=== PATIENT | male | born 1935 | race Caucasian/White ===

== ENCOUNTER 2018-07-24 11:16 | Inpatient (IN) | payer MEDICARE, OTHER ==
[~2018-07-24] VITALS: Ht 167.6 cm; Wt 63.2 kg
[~2018-07-24 11:16] MED LIST: ACET325T14 PO; AMAN100C7 PO; ASPI-496 PO; ASPI-515 PO; ASPI325T17 PO; CLOP75TA PO; METO25TA35 PO; OLME40TA12 PO; OMEP-110 PO; PRED1TAB PO; RASA1TAB2 PO; SIMV20TA3 PO
--- NOTE | 2018-07-24 12:02 | NUR ---
Break RN: Pt to ER after >1mo. SOB, orthopnea & increasing BLE edema. Went to [facility] office 4 days ago, had CXR & told to go to ER at that time for further eval. of pleural effusion. Pt decided to wait until today for f/u care. Arrives by POV, speaks full sentences, tachypneic at 35, sats >94% RA. BLE 3+ edema with LLE erythma. EKG done, cardiac, NIBP & SPO2 monitors IP. 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 @ [facility], has been seen & eval by Dr. Mckenzie & aware of POC. Placed on 2liters via NC. Sats 100% on 2l.
[2018-07-24] MEDS ORDERED: FUROSEMIDE 40 MG/4 ML IV ONE (12:30)
[2018-07-24 12:46] LABS: BASOPHILS # (AUTO) 0.03 x10^3/uL (0-0.1); BASOPHILS % (AUTO) 0 % (0-1); EOSINOPHILS # (AUTO) 0.15 x10^3/uL (0-0.4); EOSINOPHILS % (AUTO) 2 % (1-7); LYMPHOCYTES # (AUTO) 0.73 x10^3/uL (1-3.4); LYMPHOCYTES % (AUTO) 12 % (22-44); MD NO; MEAN CORPUSCULAR HEMOGLOBIN 31.5 pg (27.5-34.5); MEAN CORPUSCULAR VOLUME 95.5 fL (81-97); MEAN PLATELET VOLUME 8.8 fL (7.4-10.4); MONOCYTES # (AUTO) 0.47 x10^3/uL (0.2-0.8); MONOCYTES % (AUTO) 8 % (2-9); NEUTROPHILS # (AUTO) 4.85 x10^3/uL (1.8-6.8); NEUTROPHILS % (AUTO) 78 % (42-75); PLATELET COUNT 199 x10^3/uL (130-400); RED CELL DISTRIBUTION WIDTH 16.8 % (9.4-14.8)
[2018-07-24 12:48] LABS: CHLORIDE 111 mmol/L (98-107)
[2018-07-24 12:53] LABS: ANION GAP 8 mmol/L (5-15); CALCIUM 9.6 mg/dL (8.5-10.1); CREATININE 1.89 mg/dL (0.7-1.3); INTERNATIONAL NORMALIZED RATIO 1.24 (0.93-1.1); PROTHROMBIN TIME 12.9 Seconds (9.6-11.5)
[2018-07-24] MEDS ORDERED: FUROSEMIDE 40 MG/4 ML ONE (12:56)
[2018-07-24 12:58] LABS: TROPONIN I 0.046 ng/mL (0.000-0.045)
[2018-07-24] MEDS ORDERED: CEFTRIAXONE PMX 1GM/50ML 50 ML IV ONE (13:00)
[2018-07-24] MEDS ORDERED: AZITHROMYCIN 500 MG in SODIUM CHLORIDE 0.9% 250 ML IV ONE (13:00)
--- NOTE | 2018-07-24 13:15 | NUR ---
PT TO RAD VIA [facility] FOR THARACENTESIS. VSS. NO ACUTE S/S OF DISTRESS
[2018-07-24] MEDS ORDERED: LIDOCAINE-MPF 1%, 5ML ONE (13:20)
[2018-07-24 14:29] VITALS: BP 145/97
[2018-07-24] MEDS: CEFTRIAXONE PMX 1GM/50ML 50 ML IV SCH (14:46)
[2018-07-24] MEDS ORDERED: GUAIFENESIN 100 MG/5 ML, 5ML UDC PO PRN (15:30)
[2018-07-24] MEDS: HEPARIN 5,000 UNITS/ML, 1ML SQ SCH (17:42)
[2018-07-24 20:10] VITALS: BP 139/92
[2018-07-24] MEDS ORDERED: LOSARTAN 50MG TABLET PO SCH (21:00)
[2018-07-24] MEDS: RASAGILINE 1 MG PO SCH (21:00)
[2018-07-24] MEDS ORDERED: NUPLAZID PO ONE (22:00)
[2018-07-25 00:15] VITALS: BP 115/73
[2018-07-25] MEDS: HEPARIN 5,000 UNITS/ML, 1ML SQ SCH ×3 (01:12→18:11)
[2018-07-25 05:22] LABS: BASOPHILS # (AUTO) 0.04 x10^3/uL (0-0.1); BASOPHILS % (AUTO) 1 % (0-1); EOSINOPHILS # (AUTO) 0.17 x10^3/uL (0-0.4); EOSINOPHILS % (AUTO) 3 % (1-7); LYMPHOCYTES # (AUTO) 0.96 x10^3/uL (1-3.4); LYMPHOCYTES % (AUTO) 16 % (22-44); MD NO; MEAN CORPUSCULAR HEMOGLOBIN 31.8 pg (27.5-34.5); MEAN CORPUSCULAR HGB CONC 33.6 g/dL (33.2-36.2); MEAN CORPUSCULAR VOLUME 94.7 fL (81-97); MEAN PLATELET VOLUME 8.4 fL (7.4-10.4); MONOCYTES # (AUTO) 0.73 x10^3/uL (0.2-0.8); MONOCYTES % (AUTO) 12 % (2-9); NEUTROPHILS # (AUTO) 4.26 x10^3/uL (1.8-6.8); NEUTROPHILS % (AUTO) 69 % (42-75); PLATELET COUNT 181 x10^3/uL (130-400); RED CELL DISTRIBUTION WIDTH 16.1 % (9.4-14.8)
[2018-07-25 05:40] LABS: CHLORIDE 108 mmol/L (98-107)
[2018-07-25 05:50] LABS: ALANINE AMINOTRANSFERASE 24 U/L (12-78); ALBUMIN 3.1 g/dL (3.4-5.0); ALKALINE PHOSPHATASE 193 U/L (45-117); ANION GAP 10 mmol/L (5-15); BILIRUBIN,TOTAL 1.6 mg/dL (0.2-1.0); CALCIUM 9.4 mg/dL (8.5-10.1); TOTAL PROTEIN 6.2 g/dL (6.4-8.2)
[2018-07-25 07:20] VITALS: BP 129/86
[2018-07-25] MEDS ORDERED: NUPLAZID 17 MG PO SCH (09:00)
[2018-07-25] MEDS ORDERED: ASPIRIN 81 MG TABLET EC PO SCH (09:00)
[2018-07-25] MEDS: AMANTADINE 100 MG CAPSULE PO SCH (09:50)
[2018-07-25] MEDS: OMEPRAZOLE 20 MG CAPSULE.DR PO SCH (09:50)
[2018-07-25] MEDS: AZITHROMYCIN 250 MG TABLET PO SCH (09:50)
[2018-07-25] MEDS: CLOPIDOGREL 75 MG TABLET PO SCH (09:51)
[2018-07-25] MEDS ORDERED: NUPLAZID 34 MG PO SCH (11:30)
[2018-07-25 12:18] VITALS: BP 115/66
[2018-07-25] MEDS: CEFTRIAXONE PMX 1GM/50ML 50 ML IV SCH (14:33)
[2018-07-25] MEDS: RASAGILINE 1 MG PO SCH (19:55)
[2018-07-25 20:25] VITALS: BP 122/83
[2018-07-26 00:44] VITALS: BP 133/88
[2018-07-26] MEDS: HEPARIN 5,000 UNITS/ML, 1ML SQ SCH ×3 (02:05→21:04)
[2018-07-26 06:50] VITALS: BP 133/84
[2018-07-26 07:16] LABS: BASOPHILS # (AUTO) 0.04 x10^3/uL (0-0.1); BASOPHILS % (AUTO) 1 % (0-1); EOSINOPHILS # (AUTO) 0.17 x10^3/uL (0-0.4); EOSINOPHILS % (AUTO) 2 % (1-7); LYMPHOCYTES # (AUTO) 1.16 x10^3/uL (1-3.4); LYMPHOCYTES % (AUTO) 16 % (22-44); MD NO; MEAN CORPUSCULAR HEMOGLOBIN 31.1 pg (27.5-34.5); MEAN CORPUSCULAR HGB CONC 32.7 g/dL (33.2-36.2); MEAN CORPUSCULAR VOLUME 95.2 fL (81-97); MEAN PLATELET VOLUME 8.5 fL (7.4-10.4); MONOCYTES # (AUTO) 1.09 x10^3/uL (0.2-0.8); MONOCYTES % (AUTO) 15 % (2-9); NEUTROPHILS # (AUTO) 4.91 x10^3/uL (1.8-6.8); NEUTROPHILS % (AUTO) 67 % (42-75); PLATELET COUNT 185 x10^3/uL (130-400); RED BLOOD COUNT 4.85 x10^6/uL (4.38-5.82); RED CELL DISTRIBUTION WIDTH 16.8 % (9.4-14.8)
[2018-07-26 07:20] LABS: ALANINE AMINOTRANSFERASE 23 U/L (12-78); ALBUMIN 3.3 g/dL (3.4-5.0); ANION GAP 7 mmol/L (5-15); CALCIUM 9.2 mg/dL (8.5-10.1); CHLORIDE 109 mmol/L (98-107)
[2018-07-26 07:23] LABS: ALKALINE PHOSPHATASE 205 U/L (45-117); BILIRUBIN,TOTAL 1.2 mg/dL (0.2-1.0); CREATININE 1.58 mg/dL (0.7-1.3); TOTAL PROTEIN 6.6 g/dL (6.4-8.2)
[2018-07-26] MEDS ORDERED: SIMVASTATIN 20 MG TABLET PO SCH (09:00)
[2018-07-26] MEDS: CLOPIDOGREL 75 MG TABLET PO SCH (11:33)
[2018-07-26] MEDS: OMEPRAZOLE 20 MG CAPSULE.DR PO SCH (11:33)
[2018-07-26] MEDS: AZITHROMYCIN 250 MG TABLET PO SCH (11:34)
[2018-07-26] MEDS: AMANTADINE 100 MG CAPSULE PO SCH (11:34)
[2018-07-26] MEDS: NUPLAZID 34 MG PO SCH (11:39)
[2018-07-26] MEDS ORDERED: LOSARTAN 50MG TABLET PO ONE (12:30)
[2018-07-26 12:55] VITALS: BP 138/68
[2018-07-26] MEDS: FUROSEMIDE 40 MG TABLET PO SCH (12:59)
[2018-07-26] MEDS: CEFTRIAXONE PMX 1GM/50ML 50 ML IV SCH (18:10)
[2018-07-26 20:51] VITALS: BP 105/69
[2018-07-26] MEDS: RASAGILINE 1 MG PO SCH (21:00)
[2018-07-27 00:51] VITALS: BP 115/75
[2018-07-27] MEDS: HEPARIN 5,000 UNITS/ML, 1ML SQ SCH ×2 (04:19→11:30)
[2018-07-27] MEDS ORDERED: LOSARTAN 50MG TABLET PO SCH (09:00)
[2018-07-27 09:45] VITALS: BP 123/69
[2018-07-27] MEDS: CLOPIDOGREL 75 MG TABLET PO SCH (10:02)
[2018-07-27] MEDS: OMEPRAZOLE 20 MG CAPSULE.DR PO SCH (10:02)
[2018-07-27] MEDS: AMANTADINE 100 MG CAPSULE PO SCH (10:02)
[2018-07-27] MEDS: AZITHROMYCIN 250 MG TABLET PO SCH (10:03)
[2018-07-27] MEDS: FUROSEMIDE 40 MG TABLET PO SCH (10:03)
[2018-07-27] MEDS: NUPLAZID 34 MG PO SCH (10:14)
== END 2018-07-27 12:50 | disposition left against medical advice (07) | DRG 193 ==
LOC: ED 12:13 → EDIP 12:51 → 4WST 14:12
PROVIDERS: ADMIT Hospitalist; ATTEND Hospitalist
PROC: 0W9B3ZZ Drainage of Left Pleural Cavity, Percutaneous Approach (ICD-10-PCS; principal; 2018-07-24)
DX: J18.9 Pneumonia, unspecified organism (principal); K83.1 Obstruction of bile duct; J91.8 Pleural effusion in other conditions classified elsewhere; N17.9 Acute kidney failure, unspecified; I50.40 Unspecified combined systolic (congestive) and diastolic (congestive) heart failure; I13.0 Hypertensive heart and chronic kidney disease with heart failure and stage 1 through stage 4 chronic kidney disease, or unspecified chronic kidney disease; E78.5 Hyperlipidemia, unspecified; G20 Parkinson's disease; I25.10 Atherosclerotic heart disease of native coronary artery without angina pectoris; N18.9 Chronic kidney disease, unspecified; K76.1 Chronic passive congestion of liver; Z66 Do not resuscitate; Z53.21 Procedure and treatment not carried out due to patient leaving prior to being seen by health care provider; Z79.899 Other long term (current) drug therapy; Z86.73 Personal history of transient ischemic attack (TIA), and cerebral infarction without residual deficits; Z87.891 Personal history of nicotine dependence; Z91.81 History of falling; Z95.1 Presence of aortocoronary bypass graft
CPT/HCPCS: 32555; 36415; 71045; 76705; 80048; 80053; 82040; 82945; 83605; 83615; 83880; 84145; 84157; 84484; 85025; 85610; 85730; 87040; 87070; 87205; 89051; 93005; 93306; 99285; G0378; J0456; J0696; J1644; J1940; J7050